=== PATIENT | female | born 1960 | race Caucasian/White ===

== ENCOUNTER → 2017-01-19 | Outpatient (CLI) | payer BC | LOC: MC.RAD 14:27 | DX: Z12.31 Encounter for screening mammogram for malignant neoplasm of breast (principal); Z80.3 Family history of malignant neoplasm of breast ==

== ENCOUNTER → 2018-05-09 | Outpatient (CLI) | payer BC | LOC: MC.RAD 13:11 | DX: Z12.31 Encounter for screening mammogram for malignant neoplasm of breast (principal); N63.21 Unspecified lump in the left breast, upper outer quadrant ==

== ENCOUNTER → 2018-05-15 | Outpatient (CLI) | payer BC | LOC: MC.RAD 13:00 | DX: N63.20 Unspecified lump in the left breast, unspecified quadrant (principal) ==

== ENCOUNTER → 2018-11-08 | Outpatient (CLI) | payer BC | LOC: MC.RAD 12:44 | DX: N63.21 Unspecified lump in the left breast, upper outer quadrant (principal) | CPT/HCPCS: G0279 ==

== ENCOUNTER → 2019-05-10 | Outpatient (CLI) | payer BC | LOC: MC.RAD 12:52 | DX: N63.20 Unspecified lump in the left breast, unspecified quadrant (principal) | CPT/HCPCS: G0279 ==

== ENCOUNTER 2019-06-13 12:26 | Day surgery (SDC) | payer BC ==
[~2019-06-13] VITALS: Ht 160 cm; Wt 59.0 kg
[2019-06-13] MEDS ORDERED: ESTRACE0.5 MG PO (12:55)
[2019-06-13] MEDS ORDERED: CIDATRINE500 MG PO (12:56)
[2019-06-13 13:02] VITALS: BP 138/92; PULSE 89; TEMP 96.9
[2019-06-13 14:15] VITALS: BP 118/85; PULSE 83; TEMP 97.8
--- NOTE | 2019-06-13 14:15 | NUR ---
Pt to GI [facility] via cart from [facility] [employer]. Pt drowsy, but awake. Pt ambulates to recliner with stand by assist. Warm blanket provided. Pt reclined back for comfort. VSS. Juice and muffin provided. Pt wanting to rest. Denies pain or nausea. Lights dimmed. Call light within reach. No visitors here with pt at this time.
[2019-06-13 14:30] VITALS: BP 124/78; PULSE 92
--- NOTE | 2019-06-13 14:30 | NUR ---
Pt sleeping. Respirations even and unlabored. Call light within reach/
[2019-06-13 14:45] VITALS: BP 114/72; PULSE 73
--- NOTE | 2019-06-13 14:45 | NUR ---
Pt awake. Eating muffin and juice. Denies nausea or pain. Call light within reach.
[2019-06-13 15:00] VITALS: BP 122/77; PULSE 84
--- NOTE | 2019-06-13 15:00 | NUR ---
Discharge instructions reviewed. Pt voices understanding. IV site discontinued with all parts intact. Pt up to dress. Call light within reach.
--- NOTE | 2019-06-13 15:15 | NUR ---
Pt escorted to private car via wheel chair. Pt accompanied home by her .
[2019-06-13 16:54] VITALS: BP 107/75; PULSE 76
== END 2019-06-13 15:15 | disposition home or self-care (01) ==
LOC: SDCO 12:26
DX: R19.5 Other fecal abnormalities (principal); Z90.710 Acquired absence of both cervix and uterus; Z79.52 Long term (current) use of systemic steroids; Z80.0 Family history of malignant neoplasm of digestive organs
CPT/HCPCS: OP; J2250; J2405; J3010

== ENCOUNTER → 2020-07-08 | Outpatient (CLI) | payer BC ==
[~2020-07-08] MED LIST: CIDATRINE500 MG PO; ESTRACE0.5 MG PO
== END ==
LOC: MC.RAD 11:31
DX: Z12.31 Encounter for screening mammogram for malignant neoplasm of breast (principal)

== ENCOUNTER → 2023-11-22 | Outpatient (CLI) | payer OTHER | LOC: MC.RAD 10:15 | DX: Z12.31 Encounter for screening mammogram for malignant neoplasm of breast (principal) ==